=== PATIENT | male | born 1975 | race Caucasian/White ===

== ENCOUNTER 2024-06-11 09:50 | Emergency (ER) | payer BC, OTHER, SELFPAY ==
[2024-06-11] MEDS ORDERED: Ketorolac Tromethamine 30 MG (1 mL) VIAL ONE (10:08)
[2024-06-11] MEDS ORDERED: Diazepam 10 MG/2 ML SYRINGE ONE (10:12)
[2024-06-11] MEDS ORDERED: Lidocaine 4% Patch ONE (10:17)
== END 2024-06-11 11:03 | disposition home or self-care (01) ==
LOC: ERS 09:50
DX: M54.16 Radiculopathy, lumbar region (principal); I10 Essential (primary) hypertension
CPT/HCPCS: 96372; 99282; J1885; J3360